=== PATIENT | female | born 1940 | race Hispanic/Latino ===

== ENCOUNTER 2017-10-04 16:17 | Emergency (ER) | payer OTHER ==
[~2017-10-04 16:17] MED LIST: AMLO10TA4 PO; ASPI-1026 PO; BUDE0.255 IH; GUAIFCF5L PO; HYDR-4154 PO; ISOS20TA7 PO; LOSA100T29 PO; MULT-685 PO; ONDA4TAB4 PO
== END 2017-10-04 17:17 | disposition home or self-care (01) ==
LOC: EDH 16:17
DX: H54.7 Unspecified visual loss (principal); J44.9 Chronic obstructive pulmonary disease, unspecified; I12.0 Hypertensive chronic kidney disease with stage 5 chronic kidney disease or end stage renal disease; N18.6 End stage renal disease; F03.90 Unspecified dementia, unspecified severity, without behavioral disturbance, psychotic disturbance, mood disturbance, and anxiety; Z86.73 Personal history of transient ischemic attack (TIA), and cerebral infarction without residual deficits
CPT/HCPCS: 93005

== ENCOUNTER 2018-11-15 22:19 | Emergency (ER) | payer OTHER ==
[~2018-11-15 22:19] MED LIST changes: -LOSA100T29 PO; +LOSA100T58 PO
== END 2018-11-15 23:38 | disposition home or self-care (01) ==
LOC: EDH 22:19
DX: T82.838A Hemorrhage due to vascular prosthetic devices, implants and grafts, initial encounter (principal); I12.0 Hypertensive chronic kidney disease with stage 5 chronic kidney disease or end stage renal disease; N18.6 End stage renal disease; J44.9 Chronic obstructive pulmonary disease, unspecified; Z86.73 Personal history of transient ischemic attack (TIA), and cerebral infarction without residual deficits; Z99.2 Dependence on renal dialysis